=== PATIENT | male | born 1945 | race Hispanic/Latino ===

== ENCOUNTER → 2018-05-23 | Day surgery (SDC) | payer OTHER ==
[2018-05-21 11:59] LABS: BASOPHILS % 0.1 % (0.0-1.0); EOSINOPHILS # (AUTO) 0.1 (0.0-0.4); EOSINOPHILS % 1.5 % (0.0-6.0); HEMATOCRIT 42.1 % (38.2-49.6); HEMOGLOBIN 14.6 g/dL (14.0-18.0); LYMPHOCYTES # (AUTO) 1.5 (1.0-3.2); LYMPHOCYTES % 21.5 % (18.0-39.1); MEAN CORPUSCULAR HEMOGLOBIN 31.8 pg (28-32); MEAN CORPUSCULAR HGB CONC 34.7 g/dL (31-35); MEAN CORPUSCULAR VOLUME 91.7 fL (81-99); MONOCYTES # (AUTO) 0.7 (0.2-0.8); MONOCYTES % 10.8 % (4.4-11.3); NEUTROPHILS # (AUTO) 4.5 (2.1-6.9); NEUTROPHILS % 65.5 % (38.7-80.0); PLATELET COUNT 190 x10e3/uL (140-360); RED BLOOD COUNT 4.59 x10e6/uL (4.3-5.7); RED CELL DISTRIBUTION WIDTH 12.5 % (11.7-14.4)
--- NOTE | 2018-05-21 12:28 | Diagnostic Imaging Report ---
PROCEDURE: X-RAY CHEST, TWO VIEWS COMPARISON: None. INDICATIONS: PREOPERATIVE CHEST XRAY FOR PROSTATE SURGERY FINDINGS: Lungs are well-inflated. No focal consolidation, pleural effusion, or pneumothorax. Minimal linear opacity in the left lung base compatible with subsegmental atelectasis. Tortuosity of the thoracic aorta with otherwise normal heart size. Normal pulmonary vasculature. No acute osseous abnormalities. Multiple mid epigastric surgical clips. CONCLUSION: No acute cardiopulmonary abnormality. Dictated by: Steven Saucedo M.D. on 05/21/2018 at 12:33 Electronically approved by: Steven Saucedo M.D. on 05/21/2018 at 12:33
[~2018-05-23] MED LIST: BELLADONNA/OPIUM 30 MG SUPP RC ONE; CEFTRIAXONE SOD 1 GM VIAL ONE; DOXAZOSIN MESYLA2 MG PO; EPHEDRINE SULFATE INJ 50 MG/10 ML SYR ONE; FENTANYL CITRATE/PF 100MCG/2 ML INJ ONE; FINASTERIDE5 MG PO; GENTAMICIN 80MG/NS 100 ML 200 ML IV ONE; IOPAMIDOL 300MG/ML 50ML INFUS..BTL IV ONE; LIDOCAINE HCL 2% LOCAL INJ 5 ML SDV VIAL INJ ONE; MIDAZOLAM HCL 2 MG/2 ML VIAL ONE; ONDANSETRON HCL INJ 2 MG/ML VIAL ONE; PRAVASTATIN SOD40 MG; PROPOFOL IV EMULSION 10 MG/ML 20 ML VIAL ONE; SEVOFLURANE INHAL SOLN 250 ML PEN BTL ONE
--- NOTE | 2018-07-10 02:06 | Operative Report ---
DATE OF PROCEDURE: May 23, 2018 PREOPERATIVE DIAGNOSES: 1. Obstructive benign prostatic hypertrophy. 2. History of urolithiasis. POSTOPERATIVE DIAGNOSES: 1. Obstructive benign prostatic hypertrophy. 2. History of urolithiasis. OPERATIONS PERFORMED: 1. Cystourethroscopy with bilateral ureteral catheterization and retrograde ureteropyelography (separate procedure performed to rule out any recurrent urolithiasis). 2. Interpretation of retrograde ureteropyelography. 3. Supervision of fluoroscopy, no radiologist present. 4. Cystourethroscopy with implantation of 4 UroLift implants. ANESTHESIA: General. COMPLICATIONS: None. CLINICAL SUMMARY: Maldonado Scott is a 72-year-old man with obstructive BPH. He has been on maximum medical therapy with alpha ann therapy with Cardura and 5-zwjji-tbvxcmekt inhibitor therapy with Proscar. Patient has a history of stones. He is aware of the risks of bleeding, infection, injury to adjacent structures, need for additional procedures, and elected to proceed. OPERATIVE PROCEDURE IN DETAIL: Informed consent was verified. Maldonado Scott was properly identified, taken to the operating room, and placed on the cystoscopy table in supine position. Anesthesia was uneventfully begun. The patient was then carefully and gently repositioned in the dorsal lithotomy position with all pressure points well padded. His genitalia were prepared and draped in usual sterile fashion. The 22.5-Spanish cystoscope sheath with the visual obturator in place was atraumatically inserted into patient's urethra. It was guided down the unremarkable distal urethra past the normal sphincteric region, through the prostate bed, which was significant for bilobar prostatic hypertrophy with kissing lateral lobes and visual obstruction. Panendoscopy of the urinary bladder revealed grade 1 trabeculations, but no tumors and no suspicious lesions. An 8-Spanish catheter was used to cannulate each ureter, and retrograde ureteral pyelograms were performed. Interpretation of retrograde ureteropyelography: Contrast was instilled in retrograde fashion bilaterally. Prominent J-hooking was noted bilaterally, but there was no hydronephrosis, and unobstructed drainage was observed bilaterally fluoroscopically. We introduced the 20-Spanish cystoscope sheath with the visual obturator in place. It was then utilized to perform UroLift implants. The initial UroLift implant was placed at the left proximal region approximately 1.5 cm distal to the bladder neck. The implant was fired off and the mechanism did not cut properly and the implant was therefore stuck. We utilized the black rescue tool to force incision of the suture. There were no particles lost that could be visualized. We could see the cut edge of the suture. We then obtained a total of 4 additional implants. They were implanted on either side anterolaterally 1.5 cm distal to the bladder neck and anterolaterally on either side of the verumontanum. This resulted in continuous anterior open channel. There was mild oozing from the implant sites, therefore a Olivarez catheter was placed. The cystoscope was withdrawn. Digital rectal examination revealed a 40 g prostate, smooth, non-fluctuant, and without any nodules, and the patient was uneventfully reversed from anesthesia and taken to recovery room in stable condition. There were no complications to the procedure. He tolerated the procedure well. Explicit postoperative instructions were given, and will follow the patient up in the office, at which point will perform uroflowmetry and bladder ultrasonography. Job#: [id number] cc:MARTELL JAIN MD
== END | disposition home or self-care (01) ==
LOC: OR 09:33
PROVIDERS: ATTEND Urology
DX: N40.1 Benign prostatic hyperplasia with lower urinary tract symptoms (principal); N13.8 Other obstructive and reflux uropathy; R39.14 Feeling of incomplete bladder emptying; N13.30 Unspecified hydronephrosis; N32.89 Other specified disorders of bladder; I86.1 Scrotal varices; N43.40 Spermatocele of epididymis, unspecified; N50.0 Atrophy of testis; N52.9 Male erectile dysfunction, unspecified; N28.1 Cyst of kidney, acquired; Z87.442 Personal history of urinary calculi; I10 Essential (primary) hypertension; H91.90 Unspecified hearing loss, unspecified ear; I44.4 Left anterior fascicular block; Z01.810 Encounter for preprocedural cardiovascular examination; Z01.812 Encounter for preprocedural laboratory examination; Z01.818 Encounter for other preprocedural examination; Z79.82 Long term (current) use of aspirin
CPT/HCPCS: 52005; C9740; 36415; 71046; 74420; 85025; 93005; J0696; J1580; J2001; J2250; J2405; L8699

== ENCOUNTER 2021-01-02 12:47 | Inpatient (IN) | payer OTHER ==
[2020-12-30 10:47] LABS: BASOPHILS % 0.5 % (0.0-1.0); EOSINOPHILS # (AUTO) 0.1 (0.0-0.4); EOSINOPHILS % 2.2 % (0.0-6.0); HEMOGLOBIN 15.1 g/dL (14.0-18.0); LYMPHOCYTES # (AUTO) 1.7 (1.0-3.2); LYMPHOCYTES % 27.1 % (18.0-39.1); MEAN CORPUSCULAR HEMOGLOBIN 32.1 pg (28-32); MEAN CORPUSCULAR HGB CONC 34.3 g/dL (31-35); MEAN CORPUSCULAR VOLUME 93.4 fL (81-99); MONOCYTES # (AUTO) 0.6 (0.2-0.8); MONOCYTES % 9.6 % (4.4-11.3); NEUTROPHILS # (AUTO) 3.8 (2.1-6.9); NEUTROPHILS % 60.3 % (38.7-80.0); PLATELET COUNT 172 x10e3/uL (140-360); RED BLOOD COUNT 4.71 x10e6/uL (4.3-5.7); RED CELL DISTRIBUTION WIDTH 12.2 % (11.7-14.4)
[2020-12-30 11:07] LABS: ALANINE AMINOTRANSFERASE 31 IU/L (0-55); ALBUMIN/GLOBULIN RATIO 1.1 (0.8-2.0); ALKALINE PHOSPHATASE 105 IU/L (40-150); ANION GAP 12.7 mmol/L (8-16); BLOOD UREA NITROGEN 21 mg/dL (7-26); BUN/CREATININE RATIO 20 (6-25); CALCIUM 8.8 mg/dL (8.4-10.2); CARBON DIOXIDE 27 mmol/L (22-29); CHLORIDE 107 mmol/L (98-107); CREATININE, SERUM 1.07 mg/dL (0.72-1.25); EST GLOMERULAR FILTRATION RATE > 60 ML/MIN (60-); GLUCOSE 102 mg/dL (74-118); POTASSIUM 4.7 mmol/L (3.5-5.1); SODIUM 142 mmol/L (136-145)
[~2021-01-02] VITALS: Ht 160 cm; Wt 81.2 kg
[~2021-01-02 12:47] MED LIST changes: -BELLADONNA/OPIUM 30 MG SUPP RC ONE; -CEFTRIAXONE SOD 1 GM VIAL ONE; +CENTRUM ADULTS1 EACH PO; +DEXAMETHASONE SOD PHOS INJ 4 MG/ML VIAL ONE; -EPHEDRINE SULFATE INJ 50 MG/10 ML SYR ONE; +EPHEDRINE SULFATE INJ 50 MG/ML VIAL ONE; -FENTANYL CITRATE/PF 100MCG/2 ML INJ ONE; -GENTAMICIN 80MG/NS 100 ML 200 ML IV ONE; +GLYCOPYRROLATE INJ 0.2 MG/ML VIAL ONE; -IOPAMIDOL 300MG/ML 50ML INFUS..BTL IV ONE; -LIDOCAINE HCL 2% LOCAL INJ 5 ML SDV VIAL INJ ONE; -MIDAZOLAM HCL 2 MG/2 ML VIAL ONE; +NEOSTIGMINE 1 MG/ML 10ML VIAL ONE; -ONDANSETRON HCL INJ 2 MG/ML VIAL ONE; +ONDANSETRON HCL INJ 2MG/ML 2ML 2 MG/ML VIAL ONE; +PHENYLEPHRINE HCL 1% 10 MG/ML VIAL ONE; -PRAVASTATIN SOD40 MG; +PRAVASTATIN SOD40 MG PO; +ROCURONIUM BROMIDE 10 MG/ML 5ML VIAL IV ONE; +VIT C PO
[2021-01-02] MEDS ORDERED: CEFAZOLIN SOD 1 GM/NS 50ML 50 ML IV ONE (13:18)
[2021-01-02] MEDS ORDERED: MICROFIBRILLER COLLAGEN HEMOSTAT 1 GM POWDER TP ONE (13:37)
[2021-01-02] MEDS ORDERED: MANNITOL 25% 12.5GM/50ML 50 ML ONE (13:37)
[2021-01-02] MEDS ORDERED: FENTANYL CITRATE/PF 100MCG/2 ML INJ ONE (13:44)
[2021-01-02] MEDS ORDERED: NALOXONE HCL INJ 0.4 MG/ML AMP IV PRN (17:15)
[2021-01-02] MEDS ORDERED: ONDANSETRON HCL INJ 2MG/ML 2ML 2 MG/ML VIAL IV PRN (17:15)
[2021-01-02] MEDS ORDERED: ACETAMINOPHEN 1000 MG/100 ML IV PRN (17:15)
[2021-01-02] MEDS ORDERED: MORPHINE SULFATE 1 MG/ML 30ML PCA IV PRN (17:15)
[2021-01-02] MEDS ORDERED: DIPHENHYDRAMINE HCL INJ 50 MG/ML VIAL IM PRN (17:15)
[2021-01-02 17:28] LABS: BASOPHILS % 0.2 % (0.0-1.0); EOSINOPHILS % 0.4 % (0.0-6.0); HEMATOCRIT 37.2 % (38.2-49.6); HEMOGLOBIN 12.4 g/dL (14.0-18.0); LYMPHOCYTES # (AUTO) 1.3 (1.0-3.2); LYMPHOCYTES % 12.8 % (18.0-39.1); MEAN CORPUSCULAR HEMOGLOBIN 31.6 pg (28-32); MEAN CORPUSCULAR HGB CONC 33.3 g/dL (31-35); MEAN CORPUSCULAR VOLUME 94.9 fL (81-99); MONOCYTES # (AUTO) 0.5 (0.2-0.8); MONOCYTES % 5.2 % (4.4-11.3); NEUTROPHILS % 81.1 % (38.7-80.0); PLATELET COUNT 143 x10e3/uL (140-360); RED BLOOD COUNT 3.92 x10e6/uL (4.3-5.7)
[2021-01-02 17:47] LABS: ANION GAP 14.3 mmol/L (8-16); BLOOD UREA NITROGEN 13 mg/dL (7-26); BUN/CREATININE RATIO 14 (6-25); CALCIUM 7.5 mg/dL (8.4-10.2); CARBON DIOXIDE 21 mmol/L (22-29); CHLORIDE 107 mmol/L (98-107); CREATININE, SERUM 0.92 mg/dL (0.72-1.25); EST GLOMERULAR FILTRATION RATE > 60 ML/MIN (60-); GLUCOSE 92 mg/dL (74-118); POTASSIUM 4.3 mmol/L (3.5-5.1); SODIUM 138 mmol/L (136-145)
[2021-01-02 18:15] VITALS: BP 137/71
[2021-01-02] MEDS: SODIUM CHLORIDE 0.9% 250ML IRRIG IR SCH ×2 (18:15→22:00)
[2021-01-02] MEDS: D5.45%NS/KCL 20MEQ 1,000 ML IV SCH (18:30)
[2021-01-02 20:00] VITALS: BP 105/65
[2021-01-02 20:08] VITALS: BP 105/65
[2021-01-02 21:04] VITALS: BP 105/65
[2021-01-02] MEDS: CEFAZOLIN SOD 1 GM/NS 50ML 50 ML IV SCH (22:00)
[2021-01-03] VITALS (8 sets, daily range): BP systolic 110–126; BP diastolic 59–73
[2021-01-03] MEDS: SODIUM CHLORIDE 0.9% 250ML IRRIG IR SCH ×2 (02:00→05:09)
[2021-01-03 05:07] LABS: BASOPHILS % 0.1 % (0.0-1.0); HEMATOCRIT 35.6 % (38.2-49.6); HEMOGLOBIN 11.9 g/dL (14.0-18.0); LYMPHOCYTES # (AUTO) 0.8 (1.0-3.2); LYMPHOCYTES % 9.1 % (18.0-39.1); MEAN CORPUSCULAR HEMOGLOBIN 31.4 pg (28-32); MEAN CORPUSCULAR HGB CONC 33.4 g/dL (31-35); MEAN CORPUSCULAR VOLUME 93.9 fL (81-99); MONOCYTES # (AUTO) 0.8 (0.2-0.8); MONOCYTES % 8.6 % (4.4-11.3); NEUTROPHILS # (AUTO) 7.6 (2.1-6.9); NEUTROPHILS % 81.9 % (38.7-80.0); PLATELET COUNT 154 x10e3/uL (140-360); RED BLOOD COUNT 3.79 x10e6/uL (4.3-5.7)
[2021-01-03] MEDS: CEFAZOLIN SOD 1 GM/NS 50ML 50 ML IV SCH ×3 (05:09→21:13)
[2021-01-03 05:49] LABS: ANION GAP 12.6 mmol/L (8-16); CALCIUM 7.7 mg/dL (8.4-10.2); CREATININE, SERUM 1.53 mg/dL (0.72-1.25); POTASSIUM 4.6 mmol/L (3.5-5.1)
[2021-01-03] MEDS: D5.45%NS/KCL 20MEQ 1,000 ML IV SCH ×3 (06:09→10:30)
[2021-01-04] VITALS (8 sets, daily range): BP systolic 106–132; BP diastolic 64–72
[2021-01-04] MEDS ORDERED: KETOROLAC TROMETHAMINE 30 MG/ML VIAL IV ONE (00:45)
[2021-01-04] MEDS: D5.45%NS/KCL 20MEQ 1,000 ML IV SCH ×3 (01:59→18:59)
[2021-01-04] MEDS: CEFAZOLIN SOD 1 GM/NS 50ML 50 ML IV SCH ×3 (05:18→21:06)
[2021-01-04 05:21] LABS: BASOPHILS % 0.2 % (0.0-1.0); EOSINOPHILS % 0.2 % (0.0-6.0); HEMATOCRIT 32.8 % (38.2-49.6); HEMOGLOBIN 11.1 g/dL (14.0-18.0); LYMPHOCYTES # (AUTO) 1.3 (1.0-3.2); LYMPHOCYTES % 12.9 % (18.0-39.1); MEAN CORPUSCULAR HEMOGLOBIN 31.8 pg (28-32); MEAN CORPUSCULAR HGB CONC 33.8 g/dL (31-35); MONOCYTES # (AUTO) 1.1 (0.2-0.8); NEUTROPHILS # (AUTO) 7.5 (2.1-6.9); NEUTROPHILS % 75.3 % (38.7-80.0); PLATELET COUNT 130 x10e3/uL (140-360); RED BLOOD COUNT 3.49 x10e6/uL (4.3-5.7); RED CELL DISTRIBUTION WIDTH 12.2 % (11.7-14.4)
[2021-01-04 05:49] LABS: ANION GAP 10.1 mmol/L (8-16); CALCIUM 7.6 mg/dL (8.4-10.2); CREATININE, SERUM 1.67 mg/dL (0.72-1.25); POTASSIUM 4.1 mmol/L (3.5-5.1)
[2021-01-04] MEDS: MORPHINE SULFATE 1 MG/ML 30ML PCA IV PRN (07:40)
[2021-01-04] MEDS ORDERED: BISACODYL 10 MG SUPP PR ONE (11:55)
[2021-01-05] VITALS (8 sets, daily range): BP systolic 110–142; BP diastolic 70–91
[2021-01-05] MEDS: D5.45%NS/KCL 20MEQ 1,000 ML IV SCH ×2 (03:55→13:15)
[2021-01-05] MEDS: MORPHINE SULFATE 1 MG/ML 30ML PCA IV PRN (04:28)
[2021-01-05 05:07] LABS: BASOPHILS % 0.3 % (0.0-1.0); EOSINOPHILS # (AUTO) 0.2 (0.0-0.4); HEMATOCRIT 32.5 % (38.2-49.6); LYMPHOCYTES # (AUTO) 1.2 (1.0-3.2); LYMPHOCYTES % 14.7 % (18.0-39.1); MEAN CORPUSCULAR HEMOGLOBIN 31.6 pg (28-32); MEAN CORPUSCULAR HGB CONC 33.8 g/dL (31-35); MEAN CORPUSCULAR VOLUME 93.4 fL (81-99); MONOCYTES % 11.9 % (4.4-11.3); NEUTROPHILS # (AUTO) 5.6 (2.1-6.9); NEUTROPHILS % 70.7 % (38.7-80.0); PLATELET COUNT 136 x10e3/uL (140-360); RED BLOOD COUNT 3.48 x10e6/uL (4.3-5.7); RED CELL DISTRIBUTION WIDTH 11.9 % (11.7-14.4)
[2021-01-05 05:23] LABS: ANION GAP 12.1 mmol/L (8-16); CREATININE, SERUM 1.49 mg/dL (0.72-1.25); POTASSIUM 4.1 mmol/L (3.5-5.1)
[2021-01-05] MEDS: CEFAZOLIN SOD 1 GM/NS 50ML 50 ML IV SCH ×3 (06:08→21:40)
[2021-01-05] MEDS ORDERED: MORPHINE SULFATE INJ 2 MG/ML SYR IV PRN (09:45)
[2021-01-05] MEDS ORDERED: ACETAMINOPHEN/CODEINE 300MG - 30MG TAB PO PRN (09:45)
[2021-01-06] VITALS: BP 121/77
[2021-01-06] MEDS: D5.45%NS/KCL 20MEQ 1,000 ML IV SCH (00:51)
[2021-01-06 04:00] VITALS: BP 111/72
[2021-01-06] MEDS: CEFAZOLIN SOD 1 GM/NS 50ML 50 ML IV SCH (05:30)
[2021-01-06 05:54] LABS: BASOPHILS % 0.1 % (0.0-1.0); EOSINOPHILS # (AUTO) 0.2 (0.0-0.4); HEMATOCRIT 34.3 % (38.2-49.6); HEMOGLOBIN 11.9 g/dL (14.0-18.0); LYMPHOCYTES # (AUTO) 0.9 (1.0-3.2); LYMPHOCYTES % 12.8 % (18.0-39.1); MEAN CORPUSCULAR HEMOGLOBIN 32.3 pg (28-32); MEAN CORPUSCULAR HGB CONC 34.7 g/dL (31-35); MEAN CORPUSCULAR VOLUME 93.2 fL (81-99); MONOCYTES # (AUTO) 0.7 (0.2-0.8); MONOCYTES % 10.5 % (4.4-11.3); NEUTROPHILS # (AUTO) 5.1 (2.1-6.9); NEUTROPHILS % 73.3 % (38.7-80.0); PLATELET COUNT 162 x10e3/uL (140-360); RED BLOOD COUNT 3.68 x10e6/uL (4.3-5.7); RED CELL DISTRIBUTION WIDTH 11.7 % (11.7-14.4)
[2021-01-06 06:17] LABS: ANION GAP 13.3 mmol/L (8-16); CALCIUM 8.6 mg/dL (8.4-10.2); CREATININE, SERUM 1.4 mg/dL (0.72-1.25); POTASSIUM 4.3 mmol/L (3.5-5.1)
[2021-01-06 07:55] VITALS: BP 111/72
[2021-01-06 08:02] VITALS: BP 114/70
[2021-01-06 12:18] VITALS: BP 122/74
[2021-01-06] MEDS ORDERED: NEOMYCIN/POLYMYXIN/BACITRACIN 15 GM TUBE TOP SCH (13:30)
[2021-01-06] MEDS ORDERED: NEOSPORIN OIN28.3 GM TOP (13:54)
== END 2021-01-06 15:17 | disposition home or self-care (01) | DRG 661 ==
LOC: OR 12:47 → PACU V 17:43 → MED/SURG 18:01
PROVIDERS: ADMIT Internal Medicine; ATTEND Internal Medicine
PROC: 0T5 Urinary System, Destruction (ICD-10-PCS; 2021-01-02)
PROC: 0TT10ZZ Resection of Left Kidney, Open Approach (ICD-10-PCS; principal; 2021-01-02 15:00)
DX: N28.89 Other specified disorders of kidney and ureter (principal); N40.0 Benign prostatic hyperplasia without lower urinary tract symptoms; E78.5 Hyperlipidemia, unspecified; Z87.11 Personal history of peptic ulcer disease; Z87.891 Personal history of nicotine dependence; D71 Functional disorders of polymorphonuclear neutrophils; N28.1 Cyst of kidney, acquired; Z20.822 Contact with and (suspected) exposure to COVID-19
CPT/HCPCS: 36415; 71045; 71046; 80048; 80053; 82948; 83735; 85025; 86850; 86900; 86920; 88305; 88307; 88311; 88342; 93005; 99251; J0690; J1100; J1885; J2150; J2270; J2370; J2405; J2710; J3010; U0002

== ENCOUNTER → 2021-08-08 | Outpatient (CLI) | payer OTHER ==
[~2021-08-08] MED LIST changes: -DEXAMETHASONE SOD PHOS INJ 4 MG/ML VIAL ONE; -EPHEDRINE SULFATE INJ 50 MG/ML VIAL ONE; -GLYCOPYRROLATE INJ 0.2 MG/ML VIAL ONE; +NEOSPORIN OIN28.3 GM TOP; -NEOSTIGMINE 1 MG/ML 10ML VIAL ONE; -ONDANSETRON HCL INJ 2MG/ML 2ML 2 MG/ML VIAL ONE; -PHENYLEPHRINE HCL 1% 10 MG/ML VIAL ONE; -PROPOFOL IV EMULSION 10 MG/ML 20 ML VIAL ONE; -ROCURONIUM BROMIDE 10 MG/ML 5ML VIAL IV ONE; -SEVOFLURANE INHAL SOLN 250 ML PEN BTL ONE
== END ==
LOC: US 07:36
PROVIDERS: ATTEND Urology
DX: R31.21 Asymptomatic microscopic hematuria (principal)
CPT/HCPCS: 74018; 76770

== ENCOUNTER → 2021-08-08 | Outpatient (CLI) | payer OTHER | LOC: CARD 07:31 | PROVIDERS: ATTEND Internal Medicine | DX: R42 Dizziness and giddiness (principal) | CPT/HCPCS: 93880 ==